=== PATIENT | female | born 1965 | race Caucasian/White ===

== ENCOUNTER 2019-06-25 10:05 | Inpatient (IN) | payer BC ==
[~2019-06-25 10:05] MED LIST: Povidone-Iodine 10% Soln 118.25 ML Bottle ONE
[2019-06-25] MEDS ORDERED: fentaNYL 100 MCG/2 ML SDV ONE (10:11)
[2019-06-25] MEDS ORDERED: Propofol 200 MG/20 ML SDV ONE ×4 (10:12→14:52)
[2019-06-25] MEDS ORDERED: Midazolam 1 MG/ML 2 ML SDV ONE (10:12)
[2019-06-25] MEDS ORDERED: Gabapentin 300 MG Cap PO ONE (10:45)
[2019-06-25] MEDS: Nozin Nasal Sanitizer NASBOTH SCH ×2 (10:52→21:04)
[2019-06-25] MEDS ORDERED: Lactated Ringers 1,000 ML IV SCH (11:30)
[2019-06-25] MEDS ORDERED: ceFAZolin 2 GM in Sodium Chloride 0.9% 50 ML IV ONE (12:00)
[2019-06-25] MEDS ORDERED: Lactated Ringers 1,000 ML ONE (13:58)
[2019-06-25] MEDS ORDERED: Acetaminophen 325 MG Tab PO PRN (15:49)
[2019-06-25] MEDS ORDERED: Acetaminophen/HYDROcodone 325-5 MG Tab PO PRN (15:49)
[2019-06-25] MEDS ORDERED: Magnesium Hydroxide 400 MG/5 ML Susp 30 ML Cup PO PRN (15:49)
[2019-06-25] MEDS ORDERED: Montelukast 10 MG Tab PO PRN (16:00)
[2019-06-25] MEDS: Morphine 2 MG/ML Syringe IVPUSH PRN ×3 (17:06→19:07)
[2019-06-25] MEDS: ceFAZolin 1 GM in Premix Bag 1 BAG IV SCH (18:03)
[2019-06-25] MEDS: Sodium Chloride 0.9% 1,000 ML IV SCH (19:08)
[2019-06-25] MEDS: Ondansetron 4 MG/2 ML SDV IVPUSH PRN (20:10)
[2019-06-25] MEDS: Acetaminophen/oxyCODONE 325-5 MG Tab PO PRN (21:02)
[2019-06-25] MEDS: Docusate Sodium 100 MG Cap PO SCH (22:33)
[2019-06-25] MEDS: atorvaSTATin 10 MG Tab PO SCH (22:33)
[2019-06-26] MEDS: Acetaminophen/oxyCODONE 325-5 MG Tab PO PRN ×6 (01:30→22:09)
[2019-06-26] MEDS: ceFAZolin 1 GM in Premix Bag 1 BAG IV SCH ×3 (01:37→18:02)
[2019-06-26] MEDS: Sodium Chloride 0.9% 1,000 ML IV SCH ×3 (03:06→19:30)
--- NOTE | 2019-06-26 07:09 | CRLCR ---
Indication: Postop right knee revision. Technique: Right knee two views. Comparison: Right knee radiographs 05/15/2019. Findings: Revision right knee arthroplasty with long-stem components in the proximal tibia and distal femur appears appropriately positioned. No evidence of acute fracture or hardware complication. Diffuse anterior soft tissue swelling and gas, consistent with recent surgery. Impression: Expected changes status post right knee arthroplasty. Dictated by Shiraz Isbell MD @ Jun 26 2019 7:06AM Signed by Dr. Shiraz Isbell @ Jun 26 2019 7:08AM
[2019-06-26] MEDS: Pantoprazole 40 MG Tab.CR PO SCH (08:27)
[2019-06-26] MEDS: Levothyroxine 25 MCG Tab PO SCH (08:27)
[2019-06-26] MEDS: Nozin Nasal Sanitizer NASBOTH SCH ×2 (08:28→21:17)
[2019-06-26] MEDS: Enoxaparin 30 MG/0.3 ML Syringe SUBCUT SCH (08:29)
[2019-06-26] MEDS: Hydrochlorothiazide 25 MG Tab PO SCH (08:30)
[2019-06-26] MEDS: Sertraline 50 MG Tab PO SCH (08:30)
[2019-06-26] MEDS: Docusate Sodium 100 MG Cap PO SCH ×2 (08:30→21:19)
[2019-06-26] MEDS: Ondansetron 4 MG/2 ML SDV IVPUSH PRN (09:31)
[2019-06-26] MEDS ORDERED: Scopolamine 1.5 MG Transdermal Patch TRDERM PRN (12:34)
[2019-06-26] MEDS: Ketorolac 30 MG/ML SDV IVPUSH SCH ×2 (13:10→19:32)
[2019-06-26] MEDS: atorvaSTATin 10 MG Tab PO SCH (21:19)
[2019-06-27] MEDS: Ketorolac 30 MG/ML SDV IVPUSH SCH ×4 (01:27→18:07)
[2019-06-27] MEDS: ceFAZolin 1 GM in Premix Bag 1 BAG IV SCH ×2 (01:30→09:48)
[2019-06-27] MEDS: Acetaminophen/oxyCODONE 325-5 MG Tab PO PRN ×4 (02:14→19:25)
[2019-06-27] MEDS: Levothyroxine 25 MCG Tab PO SCH (07:12)
[2019-06-27] MEDS: Pantoprazole 40 MG Tab.CR PO SCH (07:12)
[2019-06-27] MEDS: Enoxaparin 30 MG/0.3 ML Syringe SUBCUT SCH (09:46)
[2019-06-27] MEDS: Hydrochlorothiazide 25 MG Tab PO SCH (09:46)
[2019-06-27] MEDS: Nozin Nasal Sanitizer NASBOTH SCH ×2 (09:46→21:54)
[2019-06-27] MEDS: Sertraline 50 MG Tab PO SCH (09:46)
[2019-06-27] MEDS: Docusate Sodium 100 MG Cap PO SCH ×2 (09:46→21:54)
--- NOTE | 2019-06-27 12:30 | PCM.SURGPN ---
- General Info Date of Service: 06/26/19 Date of Surgery/Procedure: 06/25/19 POD#: 1 Functional Status: Reports: Other (Pain not well controlled) - Review of Systems General: Reports: No Symptoms HEENT: Reports: No Symptoms Pulmonary: Reports: No Symptoms Cardiovascular: Reports: No Symptoms Gastrointestinal: Reports: Nausea Genitourinary: Reports: No Symptoms Musculoskeletal: Reports: Leg Pain, Joint Swelling Skin: Reports: No Symptoms Neurological: Reports: No Symptoms Psychiatric: Reports: No Symptoms - Patient Data Vitals - Most Recent: Last Vital Signs Temp 36.1 C 06/27/19 11:00 Pulse 65 06/27/19 11:00 Resp 16 06/27/19 11:00 BP 127/57 L 06/27/19 11:00 Pulse Ox 97 06/27/19 11:00 Weight - Most Recent: 92.487 kg I&O - Last 24 Hours: Intake & Output 06/26/19 06/27/19 06/27/19 22:59 06:59 14:59 Intake Total 645 955 4801 Output Total 1575 1400 Balance -750 -450 1200 [place] Results Last 24 Hrs: Microbiology 06/25/19 14:10 Gram Stain - Final Tibia, Right Wound Culture - Preliminary NO GROWTH AFTER 1 DAY Anaerobic Culture - Preliminary NO GROWTH AFTER 1 DAY 06/25/19 14:00 Gram Stain - Final Leg, Right Wound Culture - Preliminary NO GROWTH AFTER 1 DAY Anaerobic Culture - Preliminary NO GROWTH AFTER 1 DAY Med Orders - Current: Current Medications Acetaminophen (Tylenol) 650 mg PO Q4H PRN PRN Reason: Pain/Fever Hydrocodone Bitart/Acetaminophen ([place] 325-5 Mg) 1 tab PO Q3H PRN PRN Reason: Pain Last Admin: 06/25/19 16:36 Dose: 1 tab Atorvastatin Calcium (Lipitor) 10 mg PO BEDTIME [facility] Last Admin: 06/26/19 21:19 Dose: 10 mg Bandage/Support Products ( Nasal Tubing Machine Tender) 1 applic NASBOTH BID [facility] Stop: 07/01/19 21:01 Last Admin: 06/27/19 09:46 Dose: 1 applic Docusate Sodium (Colace) 100 mg PO BID [facility] Last Admin: 06/27/19 09:46 Dose: 100 mg Enoxaparin Sodium (Lovenox) 30 mg SUBCUT DAILY [facility] Last Admin: 06/27/19 09:46 Dose: 30 mg Hydrochlorothiazide (Hydrochlorothiazide) 25 mg PO DAILY [facility] Last Admin: 06/27/19 09:46 Dose: 25 mg Sodium Chloride (Normal Saline) 1,000 mls @ 125 mls/hr IV ASDIRECTED [facility] Last Admin: 06/26/19 19:30 Dose: 125 mls/hr Ketorolac Tromethamine (Toradol) 30 mg IVPUSH Q6H [facility] Stop: 07/01/19 13:01 Last Admin: 06/27/19 07:11 Dose: 30 mg Levothyroxine Sodium (Levothyroxine) 25 mcg PO ACBREAKFAST [facility] Last Admin: 06/27/19 07:12 Dose: 25 mcg Magnesium Hydroxide (Milk Of Magnesia) 30 ml PO BID PRN PRN Reason: Constipation Montelukast Sodium (Singulair) 10 mg PO DAILY PRN PRN Reason: Allergies Morphine Sulfate (Morphine) 2 mg IVPUSH Q1H PRN PRN Reason: Breakthrough Pain Last Admin: 06/25/19 19:07 Dose: 2 mg Ondansetron HCl (Zofran) 4 mg IVPUSH Q6H PRN PRN Reason: Nausea/Vomiting Last Admin: 06/26/19 09:31 Dose: 4 mg Oxycodone/Acetaminophen (Percocet 325-5 Mg) 2 tab PO Q4H PRN PRN Reason: Pain Last Admin: 06/27/19 06:06 Dose: 2 tab Pantoprazole Sodium (Protonix) 40 mg PO ACBREAKFAST [facility] Last Admin: 06/27/19 07:12 Dose: 40 mg Scopolamine (Transderm-Scop) 1.5 mg TRDERM Q72H PRN PRN Reason: Nausea Last Admin: 06/26/19 13:17 Dose: 1.5 mg Sertraline HCl (Zoloft) 50 mg PO DAILY [facility] Last Admin: 06/27/19 09:46 Dose: 50 mg Discontinued Medications Fentanyl (Sublimaze) Confirm Administered Dose 100 mcg .ROUTE .STK-MED ONE Stop: 06/25/19 10:12 Gabapentin (Neurontin) 300 mg PO ONETIME ONE Stop: 06/25/19 10:46 Last Admin: 06/25/19 10:31 Dose: 300 mg Cefazolin Sodium 2 gm/ Sodium (Chloride) 50 mls @ 100 mls/hr IV ONETIME ONE Stop: 06/25/19 12:29 Last Admin: 06/25/19 12:55 Dose: 100 mls/hr Lactated Ringer's (Ringers, Lactated) 1,000 mls @ 75 mls/hr IV ASDIRECTED [facility] Last Admin: 06/25/19 11:18 Dose: 75 mls/hr Lactated Ringer's (Ringers, Lactated) Confirm Administered Dose 1,000 mls @ as directed .ROUTE .STK-MED ONE Stop: 06/25/19 13:59 Cefazolin Sodium/Dextrose 1 gm (/ Premix) 50 mls @ 200 mls/hr IV Q8H [facility] Stop: 06/27/19 10:14 Last Admin: 06/27/19 09:48 Dose: 200 mls/hr Midazolam HCl (Versed 1 Mg/Ml) Confirm Administered Dose 2 mg .ROUTE .STK-MED ONE Stop: 06/25/19 10:13 Povidone Iodine (Betadine 10% Soln) Confirm Administered Dose 1 ml .ROUTE .STK- MED ONE Stop: 06/25/19 06:52 Last Admin: 06/25/19 14:07 Dose: 1 ml Propofol (Diprivan 20 Ml) Confirm Administered Dose 200 mg .ROUTE .STK-MED ONE Stop: 06/25/19 10:13 Propofol (Diprivan 20 Ml) Confirm Administered Dose 200 mg .ROUTE .STK-MED ONE Stop: 06/25/19 10:18 Propofol (Diprivan 20 Ml) Confirm Administered Dose 200 mg .ROUTE .STK-MED ONE Stop: 06/25/19 14:14 Propofol (Diprivan 20 Ml) Confirm Administered Dose 200 mg .ROUTE .STK-MED ONE Stop: 06/25/19 14:53 - Exam Wound/Incisions: Dressing Dry and Intact General: Alert, Oriented HEENT: Pupils Equal Neck: Supple Lungs: Clear to Auscultation, Normal Respiratory Effort Cardiovascular: Regular Rate, Regular Rhythm GI/Abdominal Exam: Normal Bowel Sounds, Soft, Non-Tender, No Distention Extremities: Limited Range of Motion Skin: Warm, Dry Neurological: No New Focal Deficit Psy/Mental Status: Alert, Normal Affect, Normal Mood - Problem List & Annotations (1) Status post revision of total replacement of right knee SNOMED Code(s): 126419471847025, 26316966, 098266428576664 Code(s): Z96.651 - PRESENCE OF RIGHT ARTIFICIAL KNEE JOINT Status: Acute Current Visit: Yes (2) Aseptic loosening of prosthetic knee SNOMED Code(s): 217594230 Code(s): T84.038A - MECHANICAL LOOSENING OF OTH INTERNAL PROSTHETIC JOINT, INIT; Z96.659 - PRESENCE OF UNSPECIFIED ARTIFICIAL KNEE JOINT Status: Acute Current Visit: No Qualifiers: Encounter type: sequela Qualified Code(s): T84.038S - Mechanical loosening of other internal prosthetic joint, sequela; Z96.659 - Presence of unspecified artificial knee joint (3) Knee pain, right SNOMED Code(s): 40536140 Code(s): M25.561 - PAIN IN RIGHT KNEE Status: Chronic Current Visit: No Qualifiers: Chronicity: chronic - Problem List Review Problem List Initiated/Reviewed/Updated: Yes - My Orders Last 24 Hours: Active Orders 24 hr Category Date Time Status Admission Status [Patient Status] [ADT] Routine ADT 06/26/19 13:48 Active Ketorolac [Toradol] Med 06/26/19 13:00 Active 30 mg IVPUSH Q6H Scopolamine [Transderm-Scop] Med 06/26/19 12:34 Active 1.5 mg TRDERM Q72H PRN Convert IV to Saline Lock [OM.PC] Routine Oth 06/26/19 22:53 Ordered Medication Orders Acetaminophen (Tylenol) 650 mg PO Q4H PRN PRN Reason: Pain/Fever Hydrocodone Bitart/Acetaminophen ([place] 325-5 Mg) 1 tab PO Q3H PRN PRN Reason: Pain Last Admin: 06/25/19 16:36 Dose: 1 tab Atorvastatin Calcium (Lipitor) 10 mg PO BEDTIME [facility] Last Admin: 06/26/19 21:19 Dose: 10 mg Admin: 06/25/19 22:33 Dose: Not Given Bandage/Support Products ( Nasal Tubing Machine Tender) 1 applic NASBOTH BID [facility] Stop: 07/01/19 21:01 Last Admin: 06/27/19 09:46 Dose: 1 applic Admin: 06/26/19 21:17 Dose: 1 applic Admin: 06/26/19 08:28 Dose: 1 applic Admin: 06/25/19 21:04 Dose: 1 applic Admin: 06/25/19 10:52 Dose: 1 applic Docusate Sodium (Colace) 100 mg PO BID [facility] Last Admin: 06/27/19 09:46 Dose: 100 mg Admin: 06/26/19 21:19 Dose: 100 mg Admin: 06/26/19 08:30 Dose: 100 mg Admin: 06/25/19 22:33 Dose: Not Given Enoxaparin Sodium (Lovenox) 30 mg SUBCUT DAILY [facility] Last Admin: 06/27/19 09:46 Dose: 30 mg Admin: 06/26/19 08:29 Dose: 30 mg Hydrochlorothiazide (Hydrochlorothiazide) 25 mg PO DAILY [facility] Last Admin: 06/27/19 09:46 Dose: 25 mg Admin: 06/26/19 08:30 Dose: 25 mg Sodium Chloride (Normal Saline) 1,000 mls @ 125 mls/hr IV ASDIRECTED [facility] Last Admin: 06/26/19 19:30 Dose: 125 mls/hr Infusion: 06/26/19 19:00 Dose: 125 mls/hr Admin: 06/26/19 11:00 Dose: 125 mls/hr Infusion: 06/26/19 11:00 Dose: 125 mls/hr Admin: 06/26/19 03:06 Dose: 125 mls/hr Infusion: 06/26/19 03:06 Dose: 125 mls/hr Admin: 06/25/19 19:08 Dose: 125 mls/hr Ketorolac Tromethamine (Toradol) 30 mg IVPUSH Q6H [facility] Stop: 07/01/19 13:01 Last Admin: 06/27/19 07:11 Dose: 30 mg Admin: 06/27/19 01:27 Dose: 30 mg Admin: 06/26/19 19:32 Dose: 30 mg Admin: 06/26/19 13:10 Dose: 30 mg Levothyroxine Sodium (Levothyroxine) 25 mcg PO ACBREAKFAST [facility] Last Admin: 06/27/19 07:12 Dose: 25 mcg Admin: 06/26/19 08:27 Dose: 25 mcg Magnesium Hydroxide (Milk Of Magnesia) 30 ml PO BID PRN PRN Reason: Constipation Montelukast Sodium (Singulair) 10 mg PO DAILY PRN PRN Reason: Allergies Morphine Sulfate (Morphine) 2 mg IVPUSH Q1H PRN PRN Reason: Breakthrough Pain Last Admin: 06/25/19 19:07 Dose: 2 mg Admin: 06/25/19 18:06 Dose: 2 mg Admin: 06/25/19 17:06 Dose: 2 mg Ondansetron HCl (Zofran) 4 mg IVPUSH Q6H PRN PRN Reason: Nausea/Vomiting Last Admin: 06/26/19 09:31 Dose: 4 mg Admin: 06/25/19 20:10 Dose: 4 mg Oxycodone/Acetaminophen (Percocet 325-5 Mg) 2 tab PO Q4H PRN PRN Reason: Pain Last Admin: 06/27/19 06:06 Dose: 2 tab Admin: 06/27/19 02:14 Dose: 2 tab Admin: 06/26/19 22:09 Dose: 2 tab Admin: 06/26/19 18:04 Dose: 2 tab Admin: 06/26/19 14:04 Dose: 2 tab Admin: 06/26/19 09:34 Dose: 2 tab Admin: 06/26/19 05:40 Dose: 2 tab Admin: 06/26/19 01:30 Dose: 2 tab Admin: 06/25/19 21:02 Dose: 2 tab Pantoprazole Sodium (Protonix) 40 mg PO ACBREAKFAST [facility] Last Admin: 06/27/19 07:12 Dose: 40 mg Admin: 06/26/19 08:27 Dose: 40 mg Scopolamine (Transderm-Scop) 1.5 mg TRDERM Q72H PRN PRN Reason: Nausea Last Admin: 06/26/19 13:17 Dose: 1.5 mg Sertraline HCl (Zoloft) 50 mg PO DAILY [facility] Last Admin: 06/27/19 09:46 Dose: 50 mg Admin: 06/26/19 08:30 Dose: 50 mg - Assessment Assessment (Free Text/Narrative):: Some difficulty with pain control and nausea overnight, Zofran not working well , otherwise stable - Plan Plan (Free Text/Narrative):: Change medications for pain and nausea, D/C Johnson after up in afternoon, change dressing tomorrow, continue PT/OT
--- NOTE | 2019-06-27 13:08 | PCM.SURGPN ---
- General Info Date of Service: 06/27/19 Date of Surgery/Procedure: 06/25/19 POD#: 2 Post-Op Diagnosis: S/P revision total knee Functional Status: Reports: Pain Controlled, Tolerating Diet, Ambulating, Urinating - Review of Systems General: Reports: No Symptoms HEENT: Reports: No Symptoms Pulmonary: Reports: No Symptoms Cardiovascular: Reports: No Symptoms Gastrointestinal: Reports: No Symptoms Genitourinary: Reports: No Symptoms Musculoskeletal: Reports: Leg Pain Skin: Reports: No Symptoms Neurological: Reports: No Symptoms Psychiatric: Reports: No Symptoms - Patient Data Vitals - Most Recent: Last Vital Signs Temp 36.1 C 06/27/19 11:00 Pulse 65 06/27/19 11:00 Resp 16 06/27/19 11:00 BP 127/57 L 06/27/19 11:00 Pulse Ox 97 06/27/19 11:00 Weight - Most Recent: 92.487 kg I&O - Last 24 Hours: Intake & Output 06/26/19 06/27/19 06/27/19 22:59 06:59 14:59 Intake Total 404 846 0424 Output Total 1575 1400 Balance -750 -450 1200 [place] Results Last 24 Hrs: Microbiology 06/25/19 14:10 Gram Stain - Final Tibia, Right Wound Culture - Preliminary NO GROWTH AFTER 1 DAY Anaerobic Culture - Preliminary NO GROWTH AFTER 1 DAY 06/25/19 14:00 Gram Stain - Final Leg, Right Wound Culture - Preliminary NO GROWTH AFTER 1 DAY Anaerobic Culture - Preliminary NO GROWTH AFTER 1 DAY Med Orders - Current: Current Medications Acetaminophen (Tylenol) 650 mg PO Q4H PRN PRN Reason: Pain/Fever Hydrocodone Bitart/Acetaminophen ([place] 325-5 Mg) 1 tab PO Q3H PRN PRN Reason: Pain Last Admin: 06/25/19 16:36 Dose: 1 tab Atorvastatin Calcium (Lipitor) 10 mg PO BEDTIME [facility] Last Admin: 06/26/19 21:19 Dose: 10 mg Bandage/Support Products ( Nasal Grooming Salon Manager) 1 applic NASBOTH BID [facility] Stop: 07/01/19 21:01 Last Admin: 06/27/19 09:46 Dose: 1 applic Docusate Sodium (Colace) 100 mg PO BID [facility] Last Admin: 06/27/19 09:46 Dose: 100 mg Enoxaparin Sodium (Lovenox) 30 mg SUBCUT DAILY [facility] Last Admin: 06/27/19 09:46 Dose: 30 mg Hydrochlorothiazide (Hydrochlorothiazide) 25 mg PO DAILY [facility] Last Admin: 06/27/19 09:46 Dose: 25 mg Sodium Chloride (Normal Saline) 1,000 mls @ 125 mls/hr IV ASDIRECTED [facility] Last Admin: 06/26/19 19:30 Dose: 125 mls/hr Ketorolac Tromethamine (Toradol) 30 mg IVPUSH Q6H [facility] Stop: 07/01/19 13:01 Last Admin: 06/27/19 07:11 Dose: 30 mg Levothyroxine Sodium (Levothyroxine) 25 mcg PO ACBREAKFAST [facility] Last Admin: 06/27/19 07:12 Dose: 25 mcg Magnesium Hydroxide (Milk Of Magnesia) 30 ml PO BID PRN PRN Reason: Constipation Montelukast Sodium (Singulair) 10 mg PO DAILY PRN PRN Reason: Allergies Morphine Sulfate (Morphine) 2 mg IVPUSH Q1H PRN PRN Reason: Breakthrough Pain Last Admin: 06/25/19 19:07 Dose: 2 mg Ondansetron HCl (Zofran) 4 mg IVPUSH Q6H PRN PRN Reason: Nausea/Vomiting Last Admin: 06/26/19 09:31 Dose: 4 mg Oxycodone/Acetaminophen (Percocet 325-5 Mg) 2 tab PO Q4H PRN PRN Reason: Pain Last Admin: 06/27/19 06:06 Dose: 2 tab Pantoprazole Sodium (Protonix) 40 mg PO ACBREAKFAST [facility] Last Admin: 06/27/19 07:12 Dose: 40 mg Scopolamine (Transderm-Scop) 1.5 mg TRDERM Q72H PRN PRN Reason: Nausea Last Admin: 06/26/19 13:17 Dose: 1.5 mg Sertraline HCl (Zoloft) 50 mg PO DAILY [facility] Last Admin: 06/27/19 09:46 Dose: 50 mg Discontinued Medications Fentanyl (Sublimaze) Confirm Administered Dose 100 mcg .ROUTE .STK-MED ONE Stop: 06/25/19 10:12 Gabapentin (Neurontin) 300 mg PO ONETIME ONE Stop: 06/25/19 10:46 Last Admin: 06/25/19 10:31 Dose: 300 mg Cefazolin Sodium 2 gm/ Sodium (Chloride) 50 mls @ 100 mls/hr IV ONETIME ONE Stop: 06/25/19 12:29 Last Admin: 06/25/19 12:55 Dose: 100 mls/hr Lactated Ringer's (Ringers, Lactated) 1,000 mls @ 75 mls/hr IV ASDIRECTED [facility] Last Admin: 06/25/19 11:18 Dose: 75 mls/hr Lactated Ringer's (Ringers, Lactated) Confirm Administered Dose 1,000 mls @ as directed .ROUTE .STK-MED ONE Stop: 06/25/19 13:59 Cefazolin Sodium/Dextrose 1 gm (/ Premix) 50 mls @ 200 mls/hr IV Q8H [facility] Stop: 06/27/19 10:14 Last Admin: 06/27/19 09:48 Dose: 200 mls/hr Midazolam HCl (Versed 1 Mg/Ml) Confirm Administered Dose 2 mg .ROUTE .STK-MED ONE Stop: 06/25/19 10:13 Povidone Iodine (Betadine 10% Soln) Confirm Administered Dose 1 ml .ROUTE .STK- MED ONE Stop: 06/25/19 06:52 Last Admin: 06/25/19 14:07 Dose: 1 ml Propofol (Diprivan 20 Ml) Confirm Administered Dose 200 mg .ROUTE .STK-MED ONE Stop: 06/25/19 10:13 Propofol (Diprivan 20 Ml) Confirm Administered Dose 200 mg .ROUTE .STK-MED ONE Stop: 06/25/19 10:18 Propofol (Diprivan 20 Ml) Confirm Administered Dose 200 mg .ROUTE .STK-MED ONE Stop: 06/25/19 14:14 Propofol (Diprivan 20 Ml) Confirm Administered Dose 200 mg .ROUTE .STK-MED ONE Stop: 06/25/19 14:53 - Exam Wound/Incisions: Healing Well, No Drainage General: Alert, Oriented HEENT: Pupils Equal Neck: Supple Lungs: Clear to Auscultation, Normal Respiratory Effort Cardiovascular: Regular Rate, Regular Rhythm GI/Abdominal Exam: Normal Bowel Sounds, Soft, Non-Tender, No Distention Extremities: Joint Swelling, Limited Range of Motion Skin: Warm, Dry Neurological: No New Focal Deficit Psy/Mental Status: Alert, Normal Affect, Normal Mood - Problem List & Annotations (1) Status post revision of total replacement of right knee SNOMED Code(s): 105622492662140, 16265689, 021661706410030 Code(s): Z96.651 - PRESENCE OF RIGHT ARTIFICIAL KNEE JOINT Status: Acute Current Visit: Yes (2) Aseptic loosening of prosthetic knee SNOMED Code(s): 195046902 Code(s): T84.038A - MECHANICAL LOOSENING OF OTH INTERNAL PROSTHETIC JOINT, INIT; Z96.659 - PRESENCE OF UNSPECIFIED ARTIFICIAL KNEE JOINT Status: Acute Current Visit: No Qualifiers: Encounter type: sequela Qualified Code(s): T84.038S - Mechanical loosening of other internal prosthetic joint, sequela; Z96.659 - Presence of unspecified artificial knee joint (3) Knee pain, right SNOMED Code(s): 92844880 Code(s): M25.561 - PAIN IN RIGHT KNEE Status: Chronic Current Visit: No Qualifiers: Chronicity: chronic - Problem List Review Problem List Initiated/Reviewed/Updated: Yes - My Orders Last 24 Hours: Active Orders 24 hr Category Date Time Status Admission Status [Patient Status] [ADT] Routine ADT 06/26/19 13:48 Active Ketorolac [Toradol] Med 06/26/19 13:00 Active 30 mg IVPUSH Q6H Scopolamine [Transderm-Scop] Med 06/26/19 12:34 Active 1.5 mg TRDERM Q72H PRN Convert IV to Saline Lock [OM.PC] Routine Oth 06/26/19 22:53 Ordered Medication Orders Acetaminophen (Tylenol) 650 mg PO Q4H PRN PRN Reason: Pain/Fever Hydrocodone Bitart/Acetaminophen ([place] 325-5 Mg) 1 tab PO Q3H PRN PRN Reason: Pain Last Admin: 06/25/19 16:36 Dose: 1 tab Atorvastatin Calcium (Lipitor) 10 mg PO BEDTIME [facility] Last Admin: 06/26/19 21:19 Dose: 10 mg Admin: 06/25/19 22:33 Dose: Not Given Bandage/Support Products ( Nasal Grooming Salon Manager) 1 applic NASBOTH BID [facility] Stop: 07/01/19 21:01 Last Admin: 06/27/19 09:46 Dose: 1 applic Admin: 06/26/19 21:17 Dose: 1 applic Admin: 06/26/19 08:28 Dose: 1 applic Admin: 06/25/19 21:04 Dose: 1 applic Admin: 06/25/19 10:52 Dose: 1 applic Docusate Sodium (Colace) 100 mg PO BID [facility] Last Admin: 06/27/19 09:46 Dose: 100 mg Admin: 06/26/19 21:19 Dose: 100 mg Admin: 06/26/19 08:30 Dose: 100 mg Admin: 06/25/19 22:33 Dose: Not Given Enoxaparin Sodium (Lovenox) 30 mg SUBCUT DAILY [facility] Last Admin: 06/27/19 09:46 Dose: 30 mg Admin: 06/26/19 08:29 Dose: 30 mg Hydrochlorothiazide (Hydrochlorothiazide) 25 mg PO DAILY [facility] Last Admin: 06/27/19 09:46 Dose: 25 mg Admin: 06/26/19 08:30 Dose: 25 mg Sodium Chloride (Normal Saline) 1,000 mls @ 125 mls/hr IV ASDIRECTED [facility] Last Admin: 06/26/19 19:30 Dose: 125 mls/hr Infusion: 06/26/19 19:00 Dose: 125 mls/hr Admin: 06/26/19 11:00 Dose: 125 mls/hr Infusion: 06/26/19 11:00 Dose: 125 mls/hr Admin: 06/26/19 03:06 Dose: 125 mls/hr Infusion: 06/26/19 03:06 Dose: 125 mls/hr Admin: 06/25/19 19:08 Dose: 125 mls/hr Ketorolac Tromethamine (Toradol) 30 mg IVPUSH Q6H [facility] Stop: 07/01/19 13:01 Last Admin: 06/27/19 07:11 Dose: 30 mg Admin: 06/27/19 01:27 Dose: 30 mg Admin: 06/26/19 19:32 Dose: 30 mg Admin: 06/26/19 13:10 Dose: 30 mg Levothyroxine Sodium (Levothyroxine) 25 mcg PO ACBREAKFAST [facility] Last Admin: 06/27/19 07:12 Dose: 25 mcg Admin: 06/26/19 08:27 Dose: 25 mcg Magnesium Hydroxide (Milk Of Magnesia) 30 ml PO BID PRN PRN Reason: Constipation Montelukast Sodium (Singulair) 10 mg PO DAILY PRN PRN Reason: Allergies Morphine Sulfate (Morphine) 2 mg IVPUSH Q1H PRN PRN Reason: Breakthrough Pain Last Admin: 06/25/19 19:07 Dose: 2 mg Admin: 06/25/19 18:06 Dose: 2 mg Admin: 06/25/19 17:06 Dose: 2 mg Ondansetron HCl (Zofran) 4 mg IVPUSH Q6H PRN PRN Reason: Nausea/Vomiting Last Admin: 06/26/19 09:31 Dose: 4 mg Admin: 06/25/19 20:10 Dose: 4 mg Oxycodone/Acetaminophen (Percocet 325-5 Mg) 2 tab PO Q4H PRN PRN Reason: Pain Last Admin: 06/27/19 06:06 Dose: 2 tab Admin: 06/27/19 02:14 Dose: 2 tab Admin: 06/26/19 22:09 Dose: 2 tab Admin: 06/26/19 18:04 Dose: 2 tab Admin: 06/26/19 14:04 Dose: 2 tab Admin: 06/26/19 09:34 Dose: 2 tab Admin: 06/26/19 05:40 Dose: 2 tab Admin: 06/26/19 01:30 Dose: 2 tab Admin: 06/25/19 21:02 Dose: 2 tab Pantoprazole Sodium (Protonix) 40 mg PO ACBREAKFAST [facility] Last Admin: 06/27/19 07:12 Dose: 40 mg Admin: 06/26/19 08:27 Dose: 40 mg Scopolamine (Transderm-Scop) 1.5 mg TRDERM Q72H PRN PRN Reason: Nausea Last Admin: 06/26/19 13:17 Dose: 1.5 mg Sertraline HCl (Zoloft) 50 mg PO DAILY [facility] Last Admin: 06/27/19 09:46 Dose: 50 mg Admin: 06/26/19 08:30 Dose: 50 mg - Assessment Assessment (Free Text/Narrative):: Pain much better controlled, scop-patch working for nausea, up in halls last night, dressing changed this am, incision looks great - Plan Plan (Free Text/Narrative):: Continue PT/OT today, anticipate home tomorrow and outpatient PT.
--- NOTE | 2019-06-27 15:07 | OR ---
DATE OF PROCEDURE: 06/25/2019 SURGEON: Piotr Walter MD PREOPERATIVE DIAGNOSIS: Aseptic loosening, right knee. POSTOPERATIVE DIAGNOSIS: Aseptic loosening, right total knee. PROCEDURE: Revision right total knee arthroplasty using Ayo LCCK components with a size D stemmed femur and 10 mm distal augments, size 4 offset stem tibia, 17 mm tibial polyethylene, and 32 mm patellar component. ANESTHESIA: Spinal with sedation. INDICATIONS: Loyda is a 53-year-old female with a history of right total knee arthroplasty. She has had difficulty with it since the initial surgery. Problems with pain and limited range of motion. She has failed conservative treatment with physical therapy. Bone scan is consistent with aseptic loosening. Femoral component does show some mild flexion malalignment. She now presents for revision total knee arthroplasty. Risks, benefits, and potential complications were discussed. DESCRIPTION OF PROCEDURE: After adequate anesthesia was obtained, the patient was placed supine with a tourniquet about the right upper thigh. Right leg was prepped and draped in a sterile fashion. Leg was exsanguinated and tourniquet inflated to 300 mmHg pressure. Previous incision was utilized, carried down through the subcutaneous tissue, and a medial parapatellar arthrotomy was performed. Fairly extensive scarring was noted in the joint capsule which was thick and tight, particularly in the suprapatellar pouch. The patellar component was almost completely encased in scar tissue. The scar tissue was excised and the edge of the component was exposed. The patella was everted and an oscillating saw was used to resect the patellar button. Using combination of drill, osteotomes, and curettes, remaining cement was removed. Component was then irrigated. There was no sign of infection. Attention was turned to the tibia and the tibial polyethylene was removed without difficulty. Using a combination of curved and straight osteotomes, the femoral component was loosened and then removed without significant difficulty. Only very mild amount of bone loss occurred with this. Samples of bone beneath the prosthesis were sent for Gram stain and culture. There was no outward evidence of infection. End of the femur was irrigated. Any remaining bone cement was removed using a combination of curette and rongeur. Attention was turned to the tibia. Tibial component was loosened with a combination of osteotomes and then removed. There was some bone loss with this, particularly in the posterolateral corner. Remaining bone was removed with combination of osteotomes and curettes. Bone was irrigated. Prior to irrigation, samples of the bone cement interface were sent for Gram stain and culture. There was no evidence of obvious infection. The femur was then sequentially reamed and the last reamer was left in place as a cutting guide. A jig was placed over this and a distal femoral cut was made freshening the edge but removing minimal amount of bone. The femur was then sized. The appropriately sized cutting jig was placed over the reamer, secured in place with pins, and anterior, posterior, and chamfer cuts as well as an intercondylar notch cut was made for a posterior cruciate sacrificing component. Trial stemmed femur was then placed with excellent fit. Attention was turned to the tibia. The canal was reamed and the last reamer was left in place. A tibial cutting jig was placed over this and a new tibial cut was made removing minimal amount of additional bone. With the reamer left in place, tibia was sized, and the offset grommet was used to select position for the tibial tray. This was pinned in place. Reamer was removed. The large-bore reamer and tibial punch were then utilized. The guide was removed and a trial tibial plate was placed with a stem. This was then trialed with multiple thicknesses of tibial inserts. A 17 mm insert provided excellent balance in flexion, but was loose in extension and 10 mm augments were then placed on the femoral component distally. This provided excellent balance with full extension. The patella was then redrilled for a 32 mm button. A trial was placed and the patella tracked very well with no lateral release. Trial components were removed. Position of the offset stem was noted on the tibia. Outer surgical gloves were changed and the components were assembled on the back table. The knee was thoroughly irrigated once again. Bone surfaces were dried. Components were then cemented in place and excess cement was removed. The knee was held in full extension as cement cured with a trial 17 mm tibial insert. Once cement had cured, the knee was again taken through range of motion and found to have full extension and flexion easily to 125 degrees and excellent balance in flexion and extension. Patella tracked well. Tibial trial was removed, the knee was irrigated, and a final polyethylene was placed and secured with the locking screw and torque wrench. The knee was irrigated once again. This was followed by dilute irrigation of Betadine, which was left in place for 2-1/2 minutes. The knee was irrigated a final time with pulse lavage and then closed with #2 Ethibond in the capsular layer, 2-0 Vicryl and a running 3-0 Monocryl. Steri-Strips were applied. After closure of the skin, the knee was taken through range of motion and showed full extension and flexion to approximately 125 degrees. Sterile dressing was then applied. The patient tolerated the procedure very well. There were no complications, taken from the operating room in stable condition. Piotr Walter MD /[id number]
[2019-06-27] MEDS: atorvaSTATin 10 MG Tab PO SCH (21:54)
[2019-06-28] MEDS: Ketorolac 30 MG/ML SDV IVPUSH SCH ×2 (01:43→07:45)
[2019-06-28] MEDS: Levothyroxine 25 MCG Tab PO SCH (07:44)
[2019-06-28] MEDS: Pantoprazole 40 MG Tab.CR PO SCH (07:44)
[2019-06-28] MEDS: Acetaminophen/oxyCODONE 325-5 MG Tab PO PRN (07:53)
[2019-06-28] MEDS: Enoxaparin 30 MG/0.3 ML Syringe SUBCUT SCH (09:05)
[2019-06-28] MEDS: Hydrochlorothiazide 25 MG Tab PO SCH (09:05)
[2019-06-28] MEDS: Sertraline 50 MG Tab PO SCH (09:05)
[2019-06-28] MEDS: Nozin Nasal Sanitizer NASBOTH SCH (09:05)
[2019-06-28] MEDS: Docusate Sodium 100 MG Cap PO SCH (09:05)
[2019-06-28 10:31] VITALS: BP 120/71; PULSE 88
== END 2019-06-28 12:20 | disposition home or self-care (01) | DRG 302 ==
LOC: JP.SDS 10:05 → UNDOADMIN 15:49 → JP.MS 15:49 → JP.SDS 06-26 13:45 → JP.MS 06-26 13:48 → UNDODISIN 06-28 12:20
PROVIDERS: ADMIT Specialist; ATTEND Specialist
PROC: 0SPC0JZ Removal of Synthetic Substitute from Right Knee Joint, Open Approach (ICD-10-PCS; principal; 2019-06-25)
PROC: 0SRC0J9 Replacement of Right Knee Joint with Synthetic Substitute, Cemented, Open Approach (ICD-10-PCS; 2019-06-25)
DX: T84.032A Mechanical loosening of internal right knee prosthetic joint, initial encounter (principal); F32.9 Major depressive disorder, single episode, unspecified; E78.5 Hyperlipidemia, unspecified; I10 Essential (primary) hypertension; F17.210 Nicotine dependence, cigarettes, uncomplicated; E03.9 Hypothyroidism, unspecified; G89.29 Other chronic pain; Z79.899 Other long term (current) drug therapy; Z88.8 Allergy status to other drugs, medicaments and biological substances; Z90.710 Acquired absence of both cervix and uterus; Z90.79 Acquired absence of other genital organ(s); Z90.722 Acquired absence of ovaries, bilateral
CPT/HCPCS: 36415; 73560-RT; 85027; 86850; 86900; 86901; 87070; 87075; 87205; 97110-GP; 97140-GP; 97161-GP; 97530-GP; 97535-GP; A9270-GY; C1713; J0690; J1650; J1885; J2250; J2270; J2405; J2704; J3010; J7030; J7120

== ENCOUNTER 2022-11-13 05:06 | Day surgery (SDC) | payer BC ==
[2022-11-13] MEDS ORDERED: Scopolamine 1.5 MG Transdermal Patch TOP ONE (05:45)
[2022-11-13] MEDS ORDERED: Dextrose 5%-Lactated Ringers 1,000 ML IV SCH (06:00)
[2022-11-13] MEDS ORDERED: Lidocaine 1% with EPINEPHrine 1:100,000 50 ML MDV ONE (06:59)
[2022-11-13] MEDS ORDERED: Bupivacaine 0.5% 50 ML MDV ONE (06:59)
[2022-11-13] MEDS ORDERED: Rocuronium 50 MG/5 ML Vial ONE (07:02)
[2022-11-13] MEDS ORDERED: Dexamethasone 4 MG/ML SDV ONE (07:02)
[2022-11-13] MEDS ORDERED: Propofol 200 MG/20 ML SDV ONE (07:02)
[2022-11-13] MEDS ORDERED: Neostigmine Methylsulfate 1 MG/ML 5 ML Syringe ONE (07:02)
[2022-11-13] MEDS ORDERED: Glycopyrrolate 0.2 MG/ML 5 ML MDV ONE (07:02)
[2022-11-13] MEDS ORDERED: fentaNYL 250 MCG/5 ML SDV ONE ×2 (07:02→07:48)
[2022-11-13] MEDS ORDERED: Succinylcholine 200 MG/10 ML MDV ONE (07:02)
[2022-11-13] MEDS ORDERED: Ondansetron 4 MG/2 ML SDV ONE (07:02)
[2022-11-13] MEDS ORDERED: Indocyanine Green 25 MG SDV ONE (07:12)
[2022-11-13] MEDS ORDERED: Sodium Chloride 0.9% 10 ML ONE (07:13)
[2022-11-13] MEDS ORDERED: cefOXitin 2 GM in Sodium Chloride 0.9% 50 ML IV ONE (07:15)
[2022-11-13] MEDS ORDERED: Ketamine 500 MG/5 ML MDV IV SCH (07:30)
[2022-11-13] MEDS ORDERED: Ketamine 15 MG in Sodium Chloride 0.9% 19.85 ML IV SCH (07:30)
[2022-11-13] MEDS ORDERED: Labetalol 20 MG/4 ML Syringe ONE (08:18)
[2022-11-13] MEDS ORDERED: Lactated Ringers 1,000 ML ONE (08:47)
[2022-11-13] MEDS ORDERED: HYDROmorphone 1 MG/ML Syringe IVPUSH PRN (09:51)
[2022-11-13] MEDS ORDERED: Ondansetron 4 MG/2 ML SDV IVPUSH PRN (09:53)
[2022-11-13 12:10] VITALS: BP 145/77; PULSE 74
== END 2022-11-13 12:36 | disposition home or self-care (01) ==
LOC: JP.SDS 05:06
PROVIDERS: ATTEND Surgery
DX: K82.8 Other specified diseases of gallbladder (principal); K81.1 Chronic cholecystitis; I10 Essential (primary) hypertension; E78.5 Hyperlipidemia, unspecified; E03.9 Hypothyroidism, unspecified; F33.2 Major depressive disorder, recurrent severe without psychotic features; J30.9 Allergic rhinitis, unspecified; K21.9 Gastro-esophageal reflux disease without esophagitis; E66.9 Obesity, unspecified; Z88.8 Allergy status to other drugs, medicaments and biological substances; Z79.899 Other long term (current) drug therapy; Z79.890 Hormone replacement therapy; Z87.891 Personal history of nicotine dependence
CPT/HCPCS: 36415; 47562; 84443; 88304; A9270; J0131; J0171; J0330; J0694; J1100; J1170; J2405; J2704; J2710; J2795; J3010; J3490; J7120; J7121

== ENCOUNTER 2023-07-04 08:24 | Day surgery (SDC) | payer BC ==
[~2023-07-04 08:24] MED LIST changes: +Midazolam 1 MG/ML 2 ML SDV ONE; -Povidone-Iodine 10% Soln 118.25 ML Bottle ONE; +Propofol 200 MG/20 ML SDV ONE; +fentaNYL 100 MCG/2 ML SDV ONE
[2023-07-04 08:49] LABS: BASOPHILS ABSOLUTE AUTO 0.06 K/uL (0.00-0.10); BASOPHILS PERCENT AUTO 1.1 % (0.1-1.3); EOSINOPHILS ABSOLUTE AUTO 0.13 K/uL (0.00-0.40); EOSINOPHILS PERCENT AUTO 2.3 % (0.0-5.4); HEMATOCRIT 39.5 % (34.3-46.0); HEMOGLOBIN 13.5 g/dL (11.2-15.5); LYMPHOCYTES ABSOLUTE AUTO 2.54 K/uL (0.8-3.3); LYMPHOCYTES PERCENT AUTO 44.5 % (11.4-47.7); MEAN CORPUSCULAR HEMOGLOBIN 31.5 pg (31.6-35.5); MEAN CORPUSCULAR HGB CONC 34.2 g/dL (31.6-35.5); MEAN CORPUSCULAR VOLUME 92.3 fL (81.4-99.0); MONOCYTES ABSOLUTE AUTO 0.46 K/uL (0.20-0.90); MONOCYTES PERCENT AUTO 8.1 % (3.3-12.6); NEUTROPHILS ABSOLUTE AUTO 2.52 K/uL (1.0-7.6); PLATELET COUNT,PLT 277 K/uL (130-375); RED BLOOD CELL COUNT 4.28 M/uL (3.77-5.24); WHITE BLOOD CELL COUNT,WBC 5.7 K/uL (3.2-11.0)
[2023-07-04 09:10] LABS: A/G RATIO 1.5 (1.2-2.2); ALANINE AMINOTRANSFERASE,ALT 15 U/L (12-78); ALBUMIN 4.5 g/dL (3.4-5.0); ALKALINE PHOSPHATASE 61 U/L (46-116); ASPARTATE AMNIOTRANSFERASE,AST 22 U/L (15-37); BILIRUBIN TOTAL 0.6 mg/dL (0.2-1.0); BLOOD UREA NITROGEN,BUN 21 mg/dL (7-18); CALCIUM 8.9 mg/dL (8.5-10.1); CARBON DIOXIDE,CO2 29 mmol/L (21-32); CHLORIDE,CL 102 mmol/L (100-108); ESTIMATED GFR 65 mL/min (>60); GLUCOSE RANDOM 106 mg/dL (74-106); POTASSIUM,K 3.7 mmol/L (3.6-5.2); PROTEIN TOTAL,TP 7.5 g/dL (6.4-8.2); SODIUM,NA 139 mmol/L (140-148)
[2023-07-04 09:11] LABS: ANION GAP 11.7 mmol/L (5.0-14.0)
[2023-07-04] MEDS ORDERED: Lactated Ringers 1,000 ML IV SCH (09:15)
[2023-07-04] MEDS ORDERED: Nozin Nasal Sanitizer NASBOTH ONE (09:15)
[2023-07-04] MEDS ORDERED: ceFAZolin 1 GM in Premix Bag 1 BAG IV ONE (09:45)
[2023-07-04] MEDS ORDERED: fentaNYL 100 MCG/2 ML SDV ONE (11:55)
[2023-07-04] MEDS ORDERED: Propofol 200 MG/20 ML SDV ONE ×2 (11:58→12:24)
[2023-07-04 15:16] VITALS: BP 165/96; PULSE 64
== END 2023-07-04 15:40 | disposition home or self-care (01) ==
LOC: JP.SDS 08:24
PROVIDERS: ATTEND Specialist
DX: M75.111 Incomplete rotator cuff tear or rupture of right shoulder, not specified as traumatic (principal); S43.431A Superior glenoid labrum lesion of right shoulder, initial encounter; M75.41 Impingement syndrome of right shoulder; K21.9 Gastro-esophageal reflux disease without esophagitis; E03.9 Hypothyroidism, unspecified; I10 Essential (primary) hypertension; F32.A Depression, unspecified; E66.9 Obesity, unspecified; Z88.8 Allergy status to other drugs, medicaments and biological substances
CPT/HCPCS: 36415; 80053; 85025; 93005; 93010; A9270-GY; C1713; J0690; J2250; J2704; J3010; J7120

== ENCOUNTER 2024-12-26 06:32 | Day surgery (SDC) | payer BC ==
[2024-12-26] MEDS ORDERED: fentaNYL 50 MCG/ML SDV ONE (07:04)
[2024-12-26] MEDS ORDERED: Midazolam 1 MG/ML 2 ML SDV ONE (07:04)
[2024-12-26] MEDS ORDERED: Propofol 200 MG/20 ML SDV ONE (07:04)
[2024-12-26] MEDS: Lactated Ringers 1,000 ML IV SCH (07:21)
[2024-12-26 08:53] VITALS: BP 147/72; PULSE 56
== END 2024-12-26 08:54 | disposition home or self-care (01) ==
LOC: JP.SDS 06:32
PROVIDERS: ATTEND Family Medicine
DX: Z12.11 Encounter for screening for malignant neoplasm of colon (principal); K64.8 Other hemorrhoids; A63.0 Anogenital (venereal) warts; E78.5 Hyperlipidemia, unspecified; Z87.891 Personal history of nicotine dependence; Z88.8 Allergy status to other drugs, medicaments and biological substances
CPT/HCPCS: 00812; 45378; J2250; J2704; J3010; J7120